=== PATIENT | female | born 1995 | race Caucasian/White ===

== ENCOUNTER 2022-10-09 07:56 | Outpatient (RCR) | payer OTHER, SELFPAY ==
[2022-10-08 12:09] LABS: Basophils Percent Auto 0.5 % (0.2-1.2); Eosinophils Percent Auto 0.4 % (0-4.4); Hematocrit 36.1 % (37.0-47.0); Hemoglobin 11.8 g/dL (12.0-15.0); Immature Granulocyte Absolute 0.04 K/mm3 (0.00-0.031); Immature Granulocyte Percent A 0.5 % (0-0.5); Lymphocytes Absolute Auto 1.22 K/mm3 (0.9-3.2); Lymphocytes Percent Auto 14.9 % (18.3-44.2); Mean Corpuscular HGB Conc 32.7 g/dl (32-36); Mean Corpuscular Hemoglobin 29.9 pg (26-34); Mean Corpuscular Volume 91.6 fl (80-100); Mean Platelet Volume 11.1 fl (7.4-10.4); Monocytes Absolute Auto 0.5 K/mm3 (0.1-0.6); Monocytes Percent Auto 5.7 % (2.6-8.5); Neutrophils Absolute Auto 6.4 K/mm3 (1.3-6.7); Platelet Count Result 185 k/mm3 (150-375); Red Blood Count 3.94 M/mm3 (4.2-5.4); Red Cell Distribution Width 12.8 % (11.5-14.5); White Blood Count 8.2 K/mm3 (4.5-10.0)
[2022-10-08 12:38] LABS: Glucose 1 Hour 93 mg/dL
[2022-10-08 13:10] LABS: HIV 1/2 Ab P24 Ag Result Negative (Negative)
[2022-10-09] MEDS: RHO(D) IMMUNE GLOBULIN 300 MCG/2 ML SYRINGE IM (13:52)
== END 2023-01-06 23:59 | disposition home or self-care (01) ==
LOC: ANHLAB 07:56
PROVIDERS: PCP Obstetrics & Gynecology; Visit Provider Obstetrics & Gynecology
DX: Z11.4 Encounter for screening for human immunodeficiency virus [HIV] (principal); Z29.13 Encounter for prophylactic Rho(D) immune globulin; O36.0190 Maternal care for anti-D [Rh] antibodies, unspecified trimester, not applicable or unspecified; Z3A.00 Weeks of gestation of pregnancy not specified
CPT/HCPCS: 36415; 85025; 85461; 86703; 86850; 86900; 86901; 90384; 96372; G0432; J2790

== ENCOUNTER 2022-12-12 02:45 | Inpatient (IN) | payer OTHER, SELFPAY ==
[2022-12-12] VITALS (221 sets, daily range): BP systolic 88–165; BP diastolic 56–112; PULSE 82–183; RESP 16–18; TEMP 36.5–37.2; O2SAT 87–100; BMI 29.9
--- NOTE | 2022-12-12 03:28 | LDADM ---
This patient, Adam Campos, was admitted to Labor/Delivery/Recovery 105 on 12/12/22 at 02:45. Plans for labor, pain management and were discussed with patient. Patient/family oriented to hospital policies and general routines including ID bracelet, bed and alarms, visiting hours, pain management, procedures, bathroom and other care routines, personal items, smoking policy, room service/diet and guest tray routines, infant security routines, and visiting hours. Patient/Family are encouraged to report perceived risks to care and to ask questions if they do not understand what they are told or what they should do. See OBIX for further documentation.
[2022-12-12 03:43] LABS: Basophils Percent Auto 0.5 % (0.2-1.2); Eosinophils Absolute Auto 0.1 K/mm3 (0-0.3); Eosinophils Percent Auto 0.6 % (0-4.4); Hematocrit 37.2 % (37.0-47.0); Hemoglobin 12.5 g/dL (12.0-15.0); Immature Granulocyte Absolute 0.06 K/mm3 (0.00-0.031); Immature Granulocyte Percent A 0.7 % (0-0.5); Lymphocytes Absolute Auto 1.88 K/mm3 (0.9-3.2); Lymphocytes Percent Auto 22.5 % (18.3-44.2); Mean Corpuscular HGB Conc 33.6 g/dl (32-36); Mean Corpuscular Volume 89.2 fl (80-100); Mean Platelet Volume 11.4 fl (7.4-10.4); Monocytes Absolute Auto 0.8 K/mm3 (0.1-0.6); Monocytes Percent Auto 9.5 % (2.6-8.5); Neutrophils Absolute Auto 5.5 K/mm3 (1.3-6.7); Neutrophils Percent Auto 66.2 % (45.5-73.1); Platelet Count Result 186 k/mm3 (150-375); Red Blood Count 4.17 M/mm3 (4.2-5.4); White Blood Count 8.3 K/mm3 (4.5-10.0)
[2022-12-12] MEDS: LACTATED RINGERS 1,000 ML 125 ML IV CONT ×2 (04:00→06:57)
[2022-12-12] MEDS: AMPICILLIN 2 GM/NS 100 ML 2 GM/100 ML BAG IVPB (04:00)
[2022-12-12] MEDS: OXYTOCIN 30 UNITS/NS 500 ML 30 UNITS/500 ML BAG 6 UNITS IV CONT (04:00)
--- NOTE | 2022-12-12 06:32 | WPDANESEPP ---
Anes - Eval Pre Procedure Procedure: labor epidural Date/Time: 12/12/22 06:32 Surgeon: jessica Preop Diagnosis: pain during labor Pre Op Diagnosis: Leaking Patient Data Age: 27 Gender: F Height: 1.55 m Weight: 72 kg Last Vital Signs Temp 36.9 C 12/12/22 03:46 Pulse 94 12/12/22 06:30 Resp 16 12/12/22 03:46 BP 123/81 12/12/22 06:30 Pulse Ox 97 12/12/22 04:02 O2 Del Method Room Air 12/12/22 03:26 Allergies Allergy/AdvReac Type Severity Reaction Status Date / Time No Known Allergies Allergy Verified 12/11/22 08:29 Home Medications Medication Instructions Recorded Confirmed Type prenat.vits,araceli,aat-bwgz-spsip 1 tablet PO DAILY 05/24/22 12/12/22 History ferrous sulfate 325 mg (65 mg 325 mg PO DAILY 11/12/22 12/12/22 History iron) tablet (FeroSul) magnesium citrate 100 mg tablet 100 mg PO DAILY 12/07/22 12/12/22 History Laboratory Tests 12/12/22 12/12/22 12/12/22 03:35 03:35 03:35 WBC 8.3 K/mm3 K/mm3 (4.5-10.0) RBC 4.17 M/mm3 L M/mm3 (4.2-5.4) Hgb 12.5 g/dL g/dL (12.0-15.0) Hct 37.2 % % (37.0-47.0) MCV 89.2 fl fl (80-100) MCH 30.0 pg pg (26-34) MCHC 33.6 g/dl g/dl (32-36) RDW 13.0 % % (11.5-14.5) Plt Count 186 k/mm3 k/mm3 (150-375) MPV 11.4 fl H fl (7.4-10.4) Immature Gran % (Auto) 0.7 % H % (0-0.5) Neut % (Auto) 66.2 % % (45.5-73.1) Lymph % (Auto) 22.5 % % (18.3-44.2) Cherry % (Auto) 9.5 % H % (2.6-8.5) Eos % (Auto) 0.6 % % (0-4.4) Baso % (Auto) 0.5 % % (0.2-1.2) Lymph # (Auto) 1.88 K/mm3 K/mm3 (0.9-3.2) Cherry # (Auto) 0.8 K/mm3 H K/mm3 (0.1-0.6) Eos # (Auto) 0.1 K/mm3 K/mm3 (0-0.3) Baso # (Auto) 0.0 K/mm3 K/mm3 (0.0-0.1) Abs Immat Gran (auto) 0.06 K/mm3 H K/mm3 (0.00-0.031) Absolute Neuts (auto) 5.5 K/mm3 K/mm3 (1.3-6.7) Absolute Nucleated RBC 0.0 K/mm3 K/mm3 (0.0-0.012) Nucleated RBC % 0.0 % % (0.0-0.2) RPR Pending Blood Type O Negative Antibody Screen Positive Antibody Identification Passive Due to RH Imm Glob Antigen Identification Cancelled ANAID, IgG Interpret Negative ANAID, Poly Interpret Negative ANAID, Complement Interp Not Performed Patient hx anesthesia problems: none Family hx anesthesia problems: none Results Review: All pre-operative results and documents have been reviewed as part of the pre-operative evaluation. [facility] Past Medical History Medical History (Updated 12/12/22 @ 06:33 by Kirti Villalba CRNA) Intrauterine Surgical History Surgical History H/O wisdom tooth extraction Family History Family History (Updated 12/07/22 @ 14:43 by Clemencia Jones RN) Grandparent Heart disease Grandparent Diabetes mellitus Social History Social History Smoking status: Never smoker Alcohol intake: never Substance use: never Substance use type: does not use Lack of Transportation: No Lack of Food: Never True Current Housing: I Have Housing Concerned About Future Housing: No Difficulty Paying Gas/Electric Bills: No Difficulty Paying for Meds: No Currently Unemployed: No Education: Associate Degree Difficulty w/ Childcare or Family Care: No Living arrangements: with family Occupation/Education: occupation Additional occupation/education comments: dental asst Gender identity (if verbalized by the patient): Female Sexual Orientation (if Verbalized by the Patient): Straight or Heterosexual Spiritual care concerns: No Exam Day of Procedure 12/12/22 06:32
[2022-12-12] MEDS: AMPICILLIN 1 GM/NS 50 ML 1 GM/50 ML BAG IVPB ×3 (08:02→15:45)
[2022-12-12 09:06] LABS: Rapid Plasma Reagin Non-Reactive (NonReactive)
--- NOTE | 2022-12-12 17:07 | P.PCNOB_ITS ---
OB - Delivery Note Procedure Delivery augmentation: Pitocin Delivery monitor: External FHT and Internal Uterine Route of delivery: Episiotomy description: None Laceration Description: Perineal - 2nd Degree Delivery repair: vicryl and chromic Specimen: No Quantitative Blood Loss (ml): 500 Anesthesia type: Epidural Disposition: Floor Complications: None Narrative: patient prepped draped usual manner for this procedure. Maternal expulsive efforts readily delivered vertex over intact perineum with the rest of the baby readily following. Cord clamped and cut and placenta delivered spontaneously. Cervix vagina vulva were not inspected with second-degree laceration noted. There was also a minimal separation of the rectal sphincter which was approximated using interrupted 0 Vicryl [id number] sutures. The vaginal tissue was then approximated using 2-0 chromic in a running interlocking manner and then the deep tissue was approximated as well with the subcuticular layer to approximate the perineum. Immediate postoperative condition of mother and baby both excellent. [place] Baby Weeks of gestation at delivery: 38 Infant gender: Male presentation: vertex Placenta delivery description: Spontaneous Cord Vessel Description: 3 Vessels
--- NOTE | 2022-12-12 17:07 | WPDHPUPDATE1 ---
History and Physical Update Update Date/Time: 12/12/22 17:07 History and Physical has been reviewed, including an updated exam of the patient. There are NO changes in the patient's condition. Risks, benefits, and alternatives have been discussed and questions answered. Patient agrees to proceed with procedure.
--- NOTE | 2022-12-12 17:07 | WPDOBADMIT ---
Obstetrics - Admit Note Admission Note: record reviewed. No pertinent additions to the history and/or any subsequent changes in the physical findings that are not consistent with the expected course of the were found. Additions to the history and/or subsequent changes in the physical findings follow. None.
--- NOTE | 2022-12-12 17:10 | PM.OBPRVD ---
OB - Delivery Note Procedure Laceration Description: Perineal - 2nd Degree Anesthesia type: Epidural Baby Weeks of gestation at delivery: 38 Infant gender: Male presentation: vertex Placenta delivery description: Spontaneous Cord Vessel Description: 3 Vessels [facility] Delivery Billing Delivery Delivery: Delivery Charge
[2022-12-12] MEDS: OXYTOCIN 30 UNITS/NS 500 ML 30 UNITS/500 ML BAG 125 UNITS IV CONT (17:11)
[2022-12-12] MEDS: BENZOCAINE 20% AER SPR (*SP) 56 GM CAN 1 SPRAY TOPICAL (19:27)
[2022-12-12] MEDS: WITCH HAZEL 40 PADS 1 PAD TOPICAL (19:27)
--- NOTE | 2022-12-12 19:31 | OBPPTRN ---
Patient transferred to post room #285 via wheelchair. Support person present. Oriented to unit, room, information board, rooming in, admission packet and security measures. Patient verbalizes understanding.
[2022-12-13 00:01] VITALS: BP 115/71; PULSE 88; RESP 18; TEMP 36.9; O2SAT 97
[2022-12-13 04:00] VITALS: BP 109/68; PULSE 82; RESP 16; TEMP 36.7; O2SAT 97
[2022-12-13 05:14] LABS: Hematocrit 32.3 % (37.0-47.0); Hemoglobin 10.9 g/dL (12.0-15.0)
--- NOTE | 2022-12-13 08:00 | PC.NURSE ---
PT introductions made and plan of care discussed per post , pain management, breast feeding, daily care activities. PT and spouse both recipients of such instructions and no barriers to learning identified at this time. PT received such instructions per one to one discussion, mom baby care guide and demonstrations this shift. PT verbalized understanding of such care.
[2022-12-13 08:15] VITALS: BP 111/73; PULSE 94; RESP 16; TEMP 36.9; O2SAT 96
[2022-12-13] MEDS: MULTIVIT/MIN/PREN/FOL AC/IRON TABLET 1 TAB PO (09:10)
[2022-12-13] MEDS: DOCUSATE SODIUM 100 MG CAPSULE PO (09:10)
[2022-12-13] MEDS: LANOLIN (LANSINOH) 7.5 GM CREAM 1 APPLIC TOPICAL (09:11)
[2022-12-13 12:21] VITALS: BP 107/52; PULSE 79; RESP 16; TEMP 36.4; O2SAT 98
--- NOTE | 2022-12-13 12:27 | WPDANLDPN2 ---
Anes-Prog Note L&D Date/Time: 12/13/22 12:27 Comfortable throughout: labor Neuraxial method: epidural Epidural/Spinal procedure site: clean & non-tender Neuro status: Neuro function grossly intact. Cardiovascular status: normal Respiratory status: normal Airway patency: baseline Mental status: baseline Post-Op hydration status: normal Vital Signs: Last Vital Signs Temp 36.4 C L 12/13/22 12:21 Pulse 79 12/13/22 12:21 Resp 16 12/13/22 12:21 BP 107/52 L 12/13/22 12:21 Pulse Ox 98 12/13/22 12:21 O2 Del Method Room Air 12/13/22 04:00 Pain score (VAS): 0 I/O: Intake & Output 12/12/22 12/13/22 12/13/22 23:59 07:59 15:59 Intake Total 240 Output Total 743 Balance -743 240 Patient feedback: Patient satisfied with anesthetic care.
--- NOTE | 2022-12-13 14:19 | PC.NURSE ---
[id number] Introductions were made, then consulted with patient to assess needs related to . Mother led the conversation with her?plans to feed?her infant and the?experience so far. Resources provided for inpatient and outpatient services with the feeding sheet, mom/baby guide and name written on the white board. Mother voiced understanding of information and requested assistance. Mother works well with her with encouragement and education. Encouraged understanding of the benefits of skin to skin (demonstrating unwrapping infant and placing upright on her chest), stimulating with massage touch, changing positions to encourage wakefulness, how to watch for early feeding cues, responsive feeding, feeding on demand (aiming for 8-12 times in 24 hours, about every 2-3 hours), milk production, building/maintaining a milk supply, duration of feeding, signs of adequate intake/output and how to record on the feeding sheet. is placed skin to skin, then after some time infant crawls to the right breast. Reviewed hand expression to move the milk down to prepare for latching.Reviewed positioning and ear, shoulder, hip alignment, supporting the breast to facilitate a deep latch, asymmetrical latch (off-center), leading with the chin with a big, open, wide gape and body close to mother. Infant latched optimally to the right breast in cross cradle position. Infant starts off strong, then becomes a weak latch that is makes it easy to take infant off the breast without having to break suction with a finger. When is latched optimally there is education given to mother of how to visualize suck/swallow ratios and listen for drinking at the breast. was able to maintain latch without discomfort to mother and with swallowing visualized. Nipple care reviewed with optimal latch and good positioning. was offered the left breast and latched optimally at first, then reduced the latch and began to pinch mother and was removed from the breast. Mother states her wrist and hands get tired after a while. Discussion and demonstration of good support to mothers hands and wrist so infant doesn't slide off the breast. Discussed the late behaviors of starting off strong, then becoming weaker over time, letting the breast go and latching shallow. Reminding mother of comfort measures of healing with a warm and wet washcloth to rinse breast, then leave open to air-dry as needed. Reviewed good handwashing when or touching the breast/nipples to prevent infection. Resources used to facilitate learning were used with the mom and baby guide. Mother voiced understanding of skin to skin, stimulating with massage touch, responsive feedings, hand expressed colostrum, talking to infant to encourage if it has been 2 -2.5 hours since the start of the last , to call if does not latch, or if there is discomfort with . Resources provided for inpatient/outpatient with feeding sheet and the mom/baby guide. Parents voiced understanding of information, demonstrated learning and will call if there is a request for assistance. Reported to the primary RN. [phone] Purposely rounded to assess needs. is reluctant to breastfeed at first and is placed skin to skin to initiate feeding cues. latches and starts off strong, then weakens latch or holds the nipple in his mouth. Mother demonstrated learning to hand express colostrum and 1/4 tsp is spoon fed to the infant. Mother was able to latch infant to the right breast independently. There is good rocking motion visualized in the jaw and accessary facial muscles. Mother denies pain. Reminded mother if the latch changes and it begins to hurt, then break suction and take the off the breast. Infant detaches and mother's nipple appears to have a flattening to the underside of the nipple where the tongue would've been. Father of baby initiated the discussion
--- NOTE | 2022-12-13 15:45 | PC.NURSE ---
[id number] Patient was assessed for correct placement, flange size, to pump for comfort and nipple stretching/stimulation for adequate milk production every 3 hours (8 times in 24 hours) 1-2 times at night. Mother voiced understanding of the education shared along with mom and baby guide for additional resource information. Mother nipples measure 18mm and the pump flanges available to provide to the patient does not exclusively meet her needs at this time. We discussed the options of practicing with optimal latching, hand expression and pumping with no pain and to seek out a better fitting flange if she continues to pump skilled nursing. We reviewed that her breast and nipples may private branch exchange service advisor time and needs might change as well. Parents voiced understanding of the education and when to call for assistance if infant doesn't latch, wake up to breastfeed or if there's pain with latching.
[2022-12-13 19:30] VITALS: BP 107/74; PULSE 90; RESP 18; TEMP 36.6
[2022-12-14 08:15] VITALS: BP 102/63; PULSE 75; RESP 16; TEMP 36.6; O2SAT 98
--- NOTE | 2022-12-14 08:56 | PM.OBDSVD ---
DS: Admitting Diagnosis Discharge Date 12/14/2022 Admitting Diagnosis DS: Discharge Diagnosis Discharge Diagnosis (1) , delivered: Code(s): O80 - Encounter for full-term uncomplicated delivery Status: Acute OB - DS: Summary OB Procedures : None OB Procedures Intrapartum: Spontaneous Vag Delivery OB Procedures: : None Time Spent with Patient Time attestation: Total time spent providing and/or coordinating discharge services: DS: Data Data Completed and Pending Labs on day of discharge: Labs from last 24 hours 12/14/22 04:17 Blood Type O Negative Antibody Screen TNP Screen Pending Baby's Blood Type Pending Baby's ANAID Pending Doses of RhIg Required Pending Discharge Plan Discharge Discharging Clinician: Alfonso Albarran Patient Disposition: Home, Self-Care Activity: as tolerated Diet: as tolerated Patient Instructions: Antibiotic Form Stand Alone Forms: General Discharge Information Follow-up/Referrals: Alfonso Albarran MD [Physician] - 3 Weeks Discharge Medications: New ibuprofen 600 mg Tablet 600 mg PO Q6H PRN (Reason: Cramping) Qty: 30 0RF Continued prenat.vits,araceli,bfn-ttls-jmcwp Tablet 1 tablet PO DAILY ferrous sulfate [FeroSul] 325 mg (65 mg iron) tablet 325 mg PO DAILY magnesium citrate 100 mg Tablet 100 mg PO DAILY Date of admission: 12/12/22 02:45 Primary Care Provider: Henry,Maulik Gan Admitting Provider: Alfonso Albarran Attending physician on admission: Alfonso Albarran Condition: Stable
[2022-12-14] MEDS: MULTIVIT/MIN/PREN/FOL AC/IRON TABLET 1 TAB PO (10:11)
[2022-12-14] MEDS: MEASLES,MUMPS,RUBELLA VACCINE 0.5 ML VIAL SUB-Q (10:12)
--- NOTE | 2022-12-14 13:03 | PC.NURSE ---
[id number] Mother led the conversation with her experience and plan to feed her so far and her ability to independently latch optimally without discomfort. Reminded parents to use good handwashing technique to prevent infection. Mother is feeding appropriately for growth of and understands stimulating to eat if needed. Infant has had appropriate feedings in the last 24 hours meets the outcomes for weight, output and jaundice at this time. Mother states she is confident to continue effectively breastfeed her infant at home, when to call for assistance and denies any additional assistance or education at this time. Reinforced understanding of milk production, transition of milk, signs of adequate intake, transition of stool, prevention/relief of engorgement, responsive watching for feeding cues, the different methods of stimulating infant to breastfeed 2-3 hours after the start of the last feeding, community resources, medication information reviewed per [facility] and when to call a provider using the resource of the mom and baby guide/[facility] website. Mother voiced understanding of the education shared. Reported to the primary RN.
[2022-12-14] MEDS: RHO(D) IMMUNE GLOBULIN 300 MCG/2 ML SYRINGE IM ×3 (13:46→13:59)
--- NOTE | 2022-12-14 15:27 | PC.NURSE ---
1100 Patient viewed the discharge video Mother & Baby Care, The First Two Weeks . Patient was given the opportunity and encouraged to ask questions. Patient verbalized understanding of information shared and has been given the mother/baby guide for home reference.
[2022-12-15 11:44] VITALS: BP 112/68; PULSE 83; RESP 16; TEMP 36.9; O2SAT 100
== END 2022-12-14 15:00 | disposition home or self-care (01) | DRG 807 ==
LOC: ANHLDR 03:13 → ANHOB2 19:36
PROVIDERS: Admitting Provider Obstetrics & Gynecology; PCP Internal Medicine; Visit Provider Obstetrics & Gynecology
DX: O99.824 Streptococcus B carrier state complicating childbirth (principal); Z37.0 Single live birth; Z3A.37 37 weeks gestation of pregnancy; O36.8330 Maternal care for abnormalities of the fetal heart rate or rhythm, third trimester, not applicable or unspecified; O70.1 Second degree perineal laceration during delivery
CPT/HCPCS: 36415; 84112; 85014; 85018; 85025; 85460; 85461; 86592; 86850; 86880; 86900; 86901; 90384; 90710; A9270; J0290; J2590; J2790; J2795; J7120

== ENCOUNTER 2023-07-23 16:49 | Emergency (ER) | payer OTHER, SELFPAY ==
[2023-07-23 16:55] VITALS: BP 137/91; PULSE 89; RESP 18; TEMP 37.4; O2SAT 100
--- NOTE | 2023-07-23 17:07 | ED.GENADULT ---
HPI - General Adult General Chief complaint: Upper Respiratory Infection Stated complaint: COLD SWEATS Time Seen by Provider: 07/23/23 17:07 Source: patient, RN notes reviewed and old records reviewed Mode of arrival: ambulatory Limitations: no limitations History of Present Illness HPI narrative: 27-year-old female presents to the [facility] with 3 days of increased anxiety, cold sweats, feeling hot without fever. Postnasal drip, runny nose. States the runny nose got Worse. Related Data Allergies Allergy/AdvReac Type Severity Reaction Status Date / Time No Known Allergies Allergy Verified 07/23/23 16:51 Review of Systems Review of Systems: All systems reviewed & are unremarkable except as noted in HPI and below Constitutional: Constitutional: Reports no additional constitutional complaints Eyes: Eyes: Reports no additional eye complaints ENT: Reports as per HPI Cardiovascular: Cardiovascular: Reports no additional cardiovascular complaints, Denies chest pain and Denies dyspnea Respiratory: Respiratory: Reports no additional respiratory complaints, Denies chest congestion, Denies cough and Denies dyspnea Gastrointestinal: Gastrointestinal: Reports no additional gastrointestinal complaints, Denies abdominal pain, Denies nausea and Denies vomiting Musculoskeletal: Musculoskeletal: Reports no additional musculoskeletal complaints Integumentary/Breasts: Skin/Breast: Reports system reviewed and no additional complaints, except as docu Neurologic: Reports system reviewed and no additional complaints, except as documented Psychiatric: Psychiatric: Reports no additional psychiatric complaints Allergic/Immunologic: Allergic/Immunologic: Reports no additional allergic/immunologic complaints PMFSH Past Medical History Medical History Intrauterine Surgical History Surgical History H/O wisdom tooth extraction Family History Family History Grandparent Heart disease Grandparent Diabetes mellitus Social History Social History Smoking status: Never smoker Second hand tobacco smoke exposure: No Alcohol intake: current Drinks per week: 1 Substance use: never Substance use type: does not use Lack of Transportation: No Lack of Food: Never True Current Housing: I Have Housing Concerned About Future Housing: No Difficulty Paying Gas/Electric Bills: No Difficulty Paying for Meds: No Currently Unemployed: No Education: Associate Degree Difficulty w/ Childcare or Family Care: No Living arrangements: with family Additional living arrangements comments: Occupation/Education: occupation Additional occupation/education comments: dental asst Gender identity (if verbalized by the patient): Female Sexual Orientation (if Verbalized by the Patient): Straight or Heterosexual Spiritual care concerns: No Comments At the time of my signature, I reviewed and agree with the nursing past medical, surgical, social, and family history. There is no relevant family history pertinent to the patient complaint. Exam Const: General: cooperative, healthy appearing, comfortable, no acute distress, well developed, alert and well nourished Nutritional Appearance: well nourished Orientation/consciousness: patient oriented x3 Limitations: no limitations HENMT: Head: normal to inspection Ears: hearing grossly normal bilaterally, external ears normal, TM's normal bilaterally and EAC's normal Face/Nose/Sinus: Normal external nose present, Normal nares present, Normal nasal mucous membranes and turbinates present, normal facial exam and face symmetric Face and sinus: normal facial exam and face symmetric Mouth: Yes Normal oral and palatal mucosa present, Yes lip normal and Y
== END 2023-07-23 17:21 | disposition home or self-care (01) ==
PROVIDERS: Emergency Provider Nurse Practitioner; PCP Physician Assistant Medical
DX: J06.9 Acute upper respiratory infection, unspecified (principal)
CPT/HCPCS: 99213; G0463

== ENCOUNTER 2025-02-10 12:00 | Outpatient (RCR) | payer OTHER, SELFPAY ==
[2025-02-09 13:47] LABS: Hematocrit 36.5 % (37.0-47.0); Hemoglobin 11.6 g/dL (12.0-15.0); Immature Granulocyte Percent A 0.6 % (0-0.5); Lymphocytes Absolute Auto 1.12 K/mm3 (0.9-3.2); Mean Corpuscular HGB Conc 31.8 g/dl (32-36); Mean Corpuscular Hemoglobin 30.1 pg (26-34); Mean Corpuscular Volume 94.6 fl (80-100); Nucleated Red Blood Cells Absolute Auto 0.000 K/mm3 (0.0-0.012); Nucleated Red Blood Cells Perc 0.0 % (0.0-0.2); Platelet Count Result 202 k/mm3 (150-375); Red Blood Count 3.86 M/mm3 (4.2-5.4); White Blood Count 8.1 K/mm3 (4.5-10.0)
[2025-02-09 14:00] LABS: Glucose 1 Hour PP 50gm Dose 143 mg/dL
[2025-02-09 14:58] LABS: HIV 1/2 Ab P24 Ag Result Negative (Negative)
[2025-02-10] MEDS: RHO(D) IMMUNE GLOBULIN 300 MCG/2 ML SYRINGE IM (12:26)
== END 2025-05-10 23:59 | disposition home or self-care (01) ==
LOC: ANHLAB 12:00
PROVIDERS: Visit Provider Obstetrics & Gynecology
DX: Z11.4 Encounter for screening for human immunodeficiency virus [HIV] (principal); Z11.3 Encounter for screening for infections with a predominantly sexual mode of transmission; Z29.13 Encounter for prophylactic Rho(D) immune globulin; O36.0190 Maternal care for anti-D [Rh] antibodies, unspecified trimester, not applicable or unspecified; Z3A.00 Weeks of gestation of pregnancy not specified
CPT/HCPCS: 36415; 82947; 85025; 85461; 86703; 86850; 86900; 86901; 90384; 96372; G0432; J2790

== ENCOUNTER 2025-02-18 07:05 | Outpatient (CLI) | payer OTHER, SELFPAY ==
[2025-02-18 07:41] LABS: Glucose Fasting Gestational 78 mg/dL (>/=95)
[2025-02-18 09:12] LABS: Glucose 1 Hour Gest 125 mg/dL (>/=180)
[2025-02-18 10:33] LABS: Glucose 2 Hour Gest 111 mg/dL (>/= 155)
[2025-02-18 11:32] LABS: Glucose 3 Hour Gest 96 mg/dL (>/=140)
== END 2025-02-18 07:06 | disposition home or self-care (01) ==
LOC: ANHLAB 07:07
PROVIDERS: Visit Provider Obstetrics & Gynecology
DX: R73.09 Other abnormal glucose (principal)
CPT/HCPCS: 36415; 82951; 82952

== ENCOUNTER 2025-04-16 11:21 | Observation (INO) | payer OTHER, SELFPAY ==
[2025-04-16 12:00] VITALS: BP 114/80; PULSE 98
[2025-04-16 12:01] VITALS: BMI 30.2
--- NOTE | 2025-04-16 12:05 | OBADM ---
This patient, Adam Campos, admitted to the OB room Labor/Delivery/Recovery 105 for observation. Patient/family oriented to hospital policies and general routines including ID bracelet, bed and alarms, visiting hours, pain management, procedures, bathroom and other care routines, personal items, smoking policy, room service/diet, and visiting hours. Patient/Family are encouraged to report perceived risks to care and to ask questions if they do not understand what they are told or what they should do.
--- NOTE | 2025-04-19 08:12 | PM.OBTRLD ---
OB - Triage/Final Diagnosis Visit Information Reason for evaluation: threatened labor Comments/Additional reasons for admission: I have assessed the risk for this patient, Adam Smithhossein Campos, and determined that she would benefit from observation care.
== END 2025-04-16 12:15 | disposition home or self-care (01) ==
PROVIDERS: Admitting Provider Obstetrics & Gynecology; Visit Provider Obstetrics & Gynecology
DX: O47.9 False labor, unspecified (principal); Z3A.00 Weeks of gestation of pregnancy not specified
CPT/HCPCS: G0378; G0379

== ENCOUNTER 2025-04-29 13:56 | Inpatient (IN) | payer OTHER, SELFPAY ==
[2025-04-29] VITALS (88 sets, daily range): BP systolic 66–139; BP diastolic 49–95; PULSE 36–146; RESP 16; TEMP 36.3–36.8; O2SAT 82–100; BMI 30.4
--- NOTE | 2025-04-29 13:56 | LDADM ---
This patient, Adam Campos, was admitted to Labor/Delivery/Recovery 105 on 04/29/25 at 13:56. Plans for labor, pain management and were discussed with patient. Patient/family oriented to hospital policies and general routines including ID bracelet, bed and alarms, visiting hours, pain management, procedures, bathroom and other care routines, personal items, smoking policy, room service/diet and guest tray routines, infant security routines, and visiting hours. Patient/Family are encouraged to report perceived risks to care and to ask questions if they do not understand what they are told or what they should do. See OBIX for further documentation.
[2025-04-29 15:40] LABS: Hematocrit 40.0 % (37.0-47.0); Hemoglobin 13.0 g/dL (12.0-15.0); Immature Granulocyte Percent A 0.3 % (0-0.5); Lymphocytes Absolute Auto 1.63 K/mm3 (0.9-3.2); Mean Corpuscular HGB Conc 32.5 g/dl (32-36); Mean Corpuscular Hemoglobin 28.5 pg (26-34); Mean Corpuscular Volume 87.7 fl (80-100); Nucleated Red Blood Cells Absolute Auto 0.000 K/mm3 (0.0-0.012); Nucleated Red Blood Cells Perc 0.0 % (0.0-0.2); Platelet Count Result 199 k/mm3 (150-375); Red Blood Count 4.56 M/mm3 (4.2-5.4); White Blood Count 10.0 K/mm3 (4.5-10.0)
--- NOTE | 2025-04-29 15:52 | WPDANESEPP ---
Anes - Eval Pre Procedure Procedure: Labor epidural Date/Time: 04/29/25 15:52 Preop Diagnosis: Pain during labor Pre Op Diagnosis: Contractions Patient Data Age: 29 Gender: F Height: Weight: Allergies Allergy/AdvReac Type Severity Reaction Status Date / Time No Known Allergies Allergy Verified 04/26/25 08:14 Home Medications ?Medication ?Instructions ?Recorded ?Confirmed ?Type fluoxetine 10 mg tablet 10 mg PO DAILY #90 tabs 03/09/25 04/26/25 Rx vit no.95-ferrous 1 tablet PO DAILY 04/06/25 04/26/25 History fumarate 28 mg-folic acid 800 mcg tablet () Laboratory Tests 04/29/25 15:18 WBC 10.0 K/mm3 (4.5-10.0) RBC 4.56 M/mm3 (4.2-5.4) Hgb 13.0 g/dL (12.0-15.0) Hct 40.0 % (37.0-47.0) MCV 87.7 fl (80-100) MCH 28.5 pg (26-34) MCHC 32.5 g/dl (32-36) RDW 13.1 % (11.5-14.5) Plt Count 199 k/mm3 (150-375) MPV 11.7 H fl (7.4-10.4) Immature Gran % (Auto) 0.3 % (0-0.5) Neut % (Auto) 74.3 H % (45.5-73.1) Lymph % (Auto) 16.3 L % (18.3-44.2) [place] % (Auto) 8.3 % (2.6-8.5) Eos % (Auto) 0.4 % (0-4.4) Baso % (Auto) 0.4 % (0.2-1.2) Lymph # (Auto) 1.63 K/mm3 (0.9-3.2) [place] # (Auto) 0.8 H K/mm3 (0.1-0.6) Eos # (Auto) 0.0 K/mm3 (0-0.3) Baso # (Auto) 0.0 K/mm3 (0.0-0.1) Abs Immat Gran (auto) 0.03 K/mm3 (0.00-0.031) Absolute Neuts (auto) 7.5 H K/mm3 (1.3-6.7) Absolute Nucleated RBC 0.000 K/mm3 (0.0-0.012) Nucleated RBC % 0.0 % (0.0-0.2) Blood Type Pending Antibody Screen Pending Patient hx anesthesia problems: none Family hx anesthesia problems: none Results Review: All pre-operative results and documents have been reviewed as part of the pre-operative evaluation. [facility] Past Medical History Medical History Intrauterine Surgical History Surgical History H/O wisdom tooth extraction Family History Family History Grandparent Heart disease Grandparent Diabetes mellitus Social History Social History Social History: 08/11/24 very confident with medical forms Smoking status: Never smoker Second hand tobacco smoke exposure: No Alcohol intake: former Drinks per week: 1 Substance use: never Substance use type: does not use Do You Feel Safe in your Home?: Yes Lack of Transportation: No Lack of Food: Never True Current Housing: I Have Housing Concerned About Future Housing: No Difficulty Paying Gas/Electric Bills: No Difficulty Paying for Meds: No Currently Unemployed: No Education: Associate Degree Difficulty w/ Childcare or Family Care: No Living arrangements: with family Additional living arrangements comments: Occupation/Education: occupation Additional occupation/education comments: dental asst Gender identity (if verbalized by the patient): Female Sexual Orientation (if Verbalized by the Patient): Straight or Heterosexual Spiritual care concerns: No Exam Day of Procedure 04/29/25 15:52 Patient weight: overweight Heart: regular rate and rhythm Lungs: clear to auscultation Airway: Mallampati scale Neurological: alert and oriented
[2025-04-29] MEDS: LACTATED RINGERS 1,000 ML 125 ML IV CONT (16:13)
[2025-04-29 16:28] LABS: Syphilis IgG/IgM Antibody Non-Reactive (Nonreactive)
[2025-04-29] MEDS: OXYTOCIN 30 UNITS/NS 500 ML 30 UNITS/500 ML BAG 999 UNITS IV CONT (18:03)
--- NOTE | 2025-04-29 18:11 | WPDHPUPDATE1 ---
History and Physical Update Update Date/Time: 04/29/25 18:11 History and Physical has been reviewed, including an updated exam of the patient. There are NO changes in the patient's condition. Risks, benefits, and alternatives have been discussed and questions answered. Patient agrees to proceed with procedure.
--- NOTE | 2025-04-29 18:11 | PM.OBPRVD ---
OB - Vaginal Delivery Note Procedure Delivery date: 04/29/25 Induction method: None Delivery augmentation: Rupture of Membranes Delivery monitor: External FHT and External Uterine Route of delivery: Episiotomy description: None Laceration Description: Vaginal Delivery repair: chromic Specimen: No Quantitative Blood Loss (ml): 200 Anesthesia type: Epidural Disposition: Floor Complications: No immediate complications Narrative: Patient prepped and draped in usual manner for this procedure. Maternal expulsive efforts readily delivered vertex. Nuchal cord was noted and clamped and cut has could not be reduced. Rest of baby was delivered without difficulty and placed on maternal abdomen. Placenta delivered spontaneously and the uterus was well contracted. Cervix vagina vulva were inspected with small superficial vaginal laceration noted which was rendered hemostatic using a [id number] 2-0 chromic suture. At this point immediate postoperative condition of mother baby were both excellent. Baby Gestational Age by Date: 39 Infant gender: Female presentation: vertex position: Right Occiput Anterior Placenta delivery description: Spontaneous Cord Vessel Description: 3 Vessels, Nuchal Cord and Clamped/Cut
[2025-04-29] MEDS: OXYTOCIN 30 UNITS/NS 500 ML 30 UNITS/500 ML BAG 125 UNITS IV CONT (18:43)
[2025-04-29] MEDS: WITCH HAZEL 40 PADS 1 PAD TOPICAL (20:40)
[2025-04-29] MEDS: BENZOCAINE 20% AER SPR (*SP) 56 GM CAN 1 SPRAY TOPICAL (20:40)
[2025-04-30 00:30] VITALS: BP 104/74; PULSE 84; RESP 14; TEMP 36.6; O2SAT 100
[2025-04-30 05:08] LABS: Hematocrit 38.2 % (37.0-47.0); Hemoglobin 12.1 g/dL (12.0-15.0)
--- NOTE | 2025-04-30 07:54 | PM.OBPNVD ---
OB - PN: Subj Subjective Date/time seen: 04/30/25 07:54 Patient comments: no complaints, pain well controlled and tolerating diet [place] feeding status: exclusively breast feeding Narrative: patient doing well this AM. No complaints. Pain is well controlled. She reports minimal bleeding. She is ambulating and voiding without difficulty. She is tolerating PO. She denies N/V, fever, chills. OB - PN: Obj Data Labs 04/30/25 03:34 Labs: Laboratory Results - last 24 hr 04/29/25 04/30/25 15:18 03:34 WBC 10.0 RBC 4.56 Hgb 13.0 12.1 Hct 40.0 38.2 MCV 87.7 MCH 28.5 MCHC 32.5 RDW 13.1 Plt Count 199 MPV 11.7 H Immature Gran % (Auto) 0.3 Neut % (Auto) 74.3 H Lymph % (Auto) 16.3 L [place] % (Auto) 8.3 Eos % (Auto) 0.4 Baso % (Auto) 0.4 Lymph # (Auto) 1.63 [place] # (Auto) 0.8 H Eos # (Auto) 0.0 Baso # (Auto) 0.0 Abs Immat Gran (auto) 0.03 Absolute Neuts (auto) 7.5 H Absolute Nucleated RBC 0.000 Nucleated RBC % 0.0 Syphilis IgG/IgM Ab Non-reactive Blood Type O Negative Antibody Screen Negative OB - PN A/P Plan day: 1 Plan: routine care Comments: patient doing well H/H stable continue routine care anticipate d/c home tomorrow Time Spent With Patient Time: Total time spent is greater than 50% in coordination of care (as documented) at patient's floor/unit and/or counseling patient: Time with patient: less than 15 minutes Review of Systems Review of Systems: All systems reviewed & are unremarkable except as noted in HPI and below Exam Const: General: comfortable and no acute distress Resp: Effort & Inspection: normal respiratory effort Cardio: Rate: regular rate GI: GI Palp: Yes Soft to palpation and No Tenderness to palpation present (GI) Auscultation: normal bowel sounds Other: fundus firm and below umbilicus. Psych: Affect: normal affect
[2025-04-30 08:10] VITALS: BP 115/78; PULSE 69; RESP 16; TEMP 36.8; O2SAT 98
[2025-04-30] MEDS: DOCUSATE SODIUM 100 MG CAPSULE PO ×2 (09:03→15:40)
[2025-04-30] MEDS: MULTIVIT/MIN/PREN/FOL AC/IRON TABLET 1 TAB PO (09:03)
[2025-04-30 12:57] VITALS: BP 123/77; PULSE 70; RESP 18; TEMP 37.3; O2SAT 97
--- NOTE | 2025-04-30 17:54 | PC.NURSE ---
1700.Mother verbalizes she is able to independently latch infant with appropriate positioning and alignment. She denies any nipple discomfort and is responsively . is currently meeting outcomes for weight, output, jaundice, blood sugar and feeding frequencies of 8-12 times in 24 hours. Mother declines any additional assistance or education at this time. Mother is encouraged to call for assistance if her doesn?t latch, pain with latching, questions or concerns. Mother voiced understanding of information shared along with the mom/baby guide for an additional resource. Reported to the Primary RN.
[2025-04-30 18:45] VITALS: BP 121/76; PULSE 81; RESP 16; TEMP 36.8; O2SAT 97
[2025-05-01 02:26] VITALS: BP 126/80; PULSE 76; RESP 14; TEMP 36.9
--- NOTE | 2025-05-01 07:50 | P.DS_ITS ---
DS: Admitting Diagnosis Discharge Date 05/01/25 Admitting Diagnosis Contractions DS: Discharge Diagnosis Discharge Diagnosis (1) Normal vaginal delivery: Code(s): O80 - Encounter for full-term uncomplicated delivery Status: Acute OB - DS: Summary OB Procedures : Ultrasound OB Procedures Intrapartum: Spontaneous Vag Delivery OB Procedures: : None Peripartum Data Delivery Method: Natural Vaginal Laceration Description: Vaginal Episiotomy description: None complications: none [place] 1: Gender: Female Disposition of : home Status at Discharge Functional status at discharge: independent ambulation Overall status at discharge: patient is back to baseline Time Spent with Patient Time attestation: Total time spent providing and/or coordinating discharge services: Exam Const: General: cooperative, comfortable and no acute distress Orientation/consciousness: patient oriented x3 Resp: Effort & Inspection: normal respiratory effort Auscultation: clear to auscultation bilaterally Cardio: Rate: regular rate GI: Inspection: non-distended GI Palp: No abdominal tenderness and Yes Soft to palpation Auscultation: normal bowel sounds : Other: fundus firm Skin: General skin exam: normal color Neuro: General: patient oriented x3 Extrem: General: normal to inspection Psych: Appearance: grossly normal Affect: normal affect Attitude: cooperative DS: Data Data Completed and Pending Labs on day of discharge: Labs from last 24 hours 04/30/25 04/29/25 03:34 15:18 WBC 10.0 RBC 4.56 Hgb 12.1 13.0 Hct 38.2 40.0 MCV 87.7 MCH 28.5 MCHC 32.5 RDW 13.1 Plt Count 199 MPV 11.7 H Immature Gran % (Auto) 0.3 Neut % (Auto) 74.3 H Lymph % (Auto) 16.3 L [place] % (Auto) 8.3 Eos % (Auto) 0.4 Baso % (Auto) 0.4 Lymph # (Auto) 1.63 [place] # (Auto) 0.8 H Eos # (Auto) 0.0 Baso # (Auto) 0.0 Abs Immat Gran (auto) 0.03 Absolute Neuts (auto) 7.5 H Absolute Nucleated RBC 0.000 Nucleated RBC % 0.0 Syphilis IgG/IgM Ab Non-reactive Blood Type O Negative Antibody Screen Negative Discharge Plan Discharge Attending physician on discharge: Keila Jones Discharging Clinician: Keila Jones Anticipated Discharge Date/Time: 05/01/25 10:00 Patient Disposition: Home Activity: may shower and pelvic rest Diet: regular Discharge Instructions: Education: Mom and Baby Guide Given to: Mother Follow-Up: Call your delivering provider's office for an appointment to be seen in: 4 Weeks Mom and baby should come to the [facility] for the follow-up appointment. Appointment Date/Time: May 03, 2025 at 11:00 am What to expect at your follow-up visit: Blood Pressure Check Physical Assessment Call [phone] if you are unable to keep your appointment time. BREAST CARE: * Wear a snug supportive bra. * For engorgement discomfort: Breast Feeding: * Apply warm moist washcloths * Express milk as needed to relieve engorgement * Wear loose clothing * For sore nipples: * Identify correct latch-on * Apply warm moist washcloths before and after nursing * Air dry nipples after nursing * May apply [place] cream to nipples PERINEAL CARE: * Until bleeding stops, use your fernandez bottle after urinating * Change your pad frequently throughout the day * You may take sitz baths several times a day (fill your bathtub with warm water and soak for 20 minutes.) Do NOT bathe in the water * No tub baths until seen by your physician - You may shower ACTIVITY: * Rest as much as possible. * Do not exercise or lift anything heavier than your baby (such as laundry or other children.) * Avoid stairs or driving as much as possible. * Do not put anything into the vagina. No douching, tampons, or sexual activity until seen by physician. NOTIFY PHYSICIAN IF YOU HAVE ANY QUESTIONS OR IF ANY OF THE FOLLOWING SYMPTOMS OCCUR: * If your vaginal bleeding becomes foul smelling. * If your vaginal bleeding becomes more heavy than a period or if your bleeding changes from pink to bright red. However, you may pass an occasional walnut- sized clot once or twice for the first week . * If you experience a sharp, shooting pain in your calves. * If you discover a hard, reddened area on your breast or if you experience flu- like symptoms. DIET: * Eat regular, well-balanced meals. * Drink plenty of fluids daily. If , drink to thirst. Patient Language: Faroese Stand Alone Forms: General Discharge Information Follow-up/Referrals: Alfonso Albarran MD [Physician] - 4 Weeks Discharge Medications: New acetaminophen 500 mg tablet 1,000 mg PO TID Qty: 60 0RF docusate sodium [Colace] 100 mg capsule 100 mg PO BID Qty: 90 0RF ibuprofen 800 mg tablet 800 mg PO TID Qty: 30 0RF Continued PNV no.95-ferrous fumarate-FA [] 28 mg iron- 800 mcg tablet 1 tablet PO DAILY fluoxetine 10 mg tablet 10 mg PO DAILY Qty: 90 0RF Date of admission: 04/29/25 13:56 Primary Care Provider: UNKNOWN,DOCTOR Admitting Provider: Alfonso Albarran Attending physician on admission: Alfonso Albarran Condition: Stable
[2025-05-01 08:39] VITALS: BP 112/66; PULSE 73; RESP 14; TEMP 36.4; O2SAT 95
[2025-05-01] MEDS: MULTIVIT/MIN/PREN/FOL AC/IRON TABLET 1 TAB PO (09:04)
[2025-05-01] MEDS: DOCUSATE SODIUM 100 MG CAPSULE PO (09:04)
--- NOTE | 2025-05-01 11:45 | PC.NURSE ---
Consulted with mother concerning needs and she shared her ability to independently latch infant independently. She has some nipple soreness but feels that things are going well. She has baby latched to the left breast in cradle hold. She says that baby favors the left side and that she feels like it is the better asset management coordinator. Mother is feeding appropriately for growth of infant and understands stimulating to eat if needed. Infant has had appropriate feedings in the last 24 hours meets the outcomes for weight, output, blood sugar and jaundice at this time. Reinforced understanding of signs of adequate intake, transition of stool, prevention/relief of engorgement, plugged ducts, mastitis, community resources, and when to call a provider using the resource of the feeding sheet along with the mom and baby guide. Mother voiced understanding of the information shared, is confident to continue effectively her infant at home, when to call for assistance, denies any additional assistance or education at this time. Reported to the Primary RN.
[2025-05-03 11:34] VITALS: BP 114/75; PULSE 64; RESP 18; TEMP 36.3; O2SAT 98
== END 2025-05-01 13:15 | disposition home or self-care (01) | DRG 806 ==
LOC: ANHLDR 15:08 → ANHOB2 04-30 13:17 → ANHLDR 05-03 13:30 → ANHOB2 05-03 13:30
PROVIDERS: Admitting Provider Obstetrics & Gynecology; Visit Provider Obstetrics & Gynecology
DX: O69.81X0 Labor and delivery complicated by cord around neck, without compression, not applicable or unspecified (principal); O71.4 Obstetric high vaginal laceration alone; Z37.0 Single live birth; Z3A.39 39 weeks gestation of pregnancy
CPT/HCPCS: 36415; 85014; 85018; 85025; 86593; 86850; 86900; 86901; A9270; J2590; J2795; J7120